=== PATIENT | male | born 1965 | race Caucasian/White ===

== ENCOUNTER 2021-09-24 18:52 | Emergency (ER) | payer BC, MEDICAID ==
[~2021-09-24] VITALS: Ht 185.4 cm; Wt 81.6 kg
[2021-09-24 19:00] VITALS: BP_SYST 130
[2021-09-24 19:57] LABS: ANION GAP 7 (5-15); CALCIUM 7.7 mg/dL (8.4-11.0); CHLORIDE 96 mmol/L (98-107); CREATININE 1.26 mg/dL (0.55-1.30); POTASSIUM 4.4 mmol/L (3.5-5.1); SODIUM SERUM 130 mmol/L (136-145); UREA NITROGEN, BLOOD 13 mg/dL (8-21)
[2021-09-24 19:59] LABS: BASOPHILS % (AUTO) 0.8 % (0.0-2.0); EOSINOPHILS % (AUTO) 0.6 % (0.0-4.0); GFR AFRICAN AMERICAN 76 mL/min (>90); HEMATOCRIT 43.3 % (36-54); HEMOGLOBIN 14.8 g/dL (14.0-18.0); LYMPHOCYTES # (AUTO) 1.1 K/uL (1.0-5.5); MEAN CORPUSCULAR HEMOGLOBIN 29 pg (27-31); MEAN CORPUSCULAR HGB CONC 34 % (32-36); MEAN CORPUSCULAR VOLUME 83 fL (79.0-98.0); MONOCYTES # (AUTO) 0.6 K/uL (0.0-1.0); MONOCYTES % (AUTO) 16.4 % (1.7-9.3); NEUTROPHILS # (AUTO) 1.9 K/uL (1.8-7.7); NEUTROPHILS % (AUTO) 52.2 % (40.0-70.0); PLATELET COUNT (AUTO) 183 K/uL (130-430); RED BLOOD CELL COUNT(AUTO) 5.19 MIL/uL (4.2-6.2); RED CELL DISTRIBUTION WIDTH 13.4 % (9.0-15.0); WHITE BLOOD COUNT (AUTO) 3.7 K/uL (4.8-10.8)
[2021-09-24 20:00] LABS: ALANINE AMINOTRANSFERASE 175 U/L (12-78); ALBUMIN 3.4 g/dL (3.4-4.8); AMYLASE 117 U/L (0-100); ASPARTATE AMINOTRANSFERASE 190 U/L (10-37); LIPASE 223 U/L (73-393); TOTAL BILIRUBIN 0.5 mg/dL (0.0-1.0)
[2021-09-24 20:06] LABS: GLUCOSE 570 mg/dL (70-99)
[2021-09-24 20:11] LABS: ACETONE, SERUM SMALL (NEGATIVE)
[2021-09-24] MEDS ORDERED: INSULIN REGULAR, HUMAN 10 UNITS/0.1 ML INJ IVP ONE (20:15)
[2021-09-24] MEDS ORDERED: NACL 0.9% 1,000 ML IV ONE ×2 (20:15)
[2021-09-25 00:52] VITALS: BP_SYST 114
== END 2021-09-25 00:52 | disposition home or self-care (01) ==
LOC: SED 18:52
DX: E11.65 Type 2 diabetes mellitus with hyperglycemia (principal); R73.9 Hyperglycemia, unspecified; Z79.899 Other long term (current) drug therapy
CPT/HCPCS: 36415; 80053; 82009; 82150; 82962; 83605; 83690; 85025; 96361; 96374; 99283; J1815; J7030